=== PATIENT | male | born 1955 | race Caucasian/White ===

== ENCOUNTER 2019-04-17 18:24 | Emergency (ER) | payer OTHER, BC ==
[~2019-04-17] VITALS: Ht 172.7 cm; Wt 79.4 kg
[2019-04-17 18:44] VITALS: BP_SYST 158
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
--- NOTE | 2019-04-17 19:01 | NUR ---
PATIENT TO ER HW#1 AT 2008
--- NOTE | 2019-04-17 19:02 | NUR ---
ERMD EVALUATION AT 185
--- NOTE | 2019-04-17 20:45 | NUR ---
ER Dr. Lopez at bedside examining patient.
--- NOTE | 2019-04-17 20:52 | NUR ---
Patient went to CT in stable condition.
[2019-04-17] MEDS ORDERED: HYDROcodone/ACETAMIN 7.5-325 MG TAB PO ONE (21:00)
--- NOTE | 2019-04-17 21:03 | NUR ---
Patient returned from CT in stable condition.
--- NOTE | 2019-04-17 21:07 | NUR ---
unable to scan medication. Computer was not turning on. Manually scanned medication.
[2019-04-17] MEDS ORDERED: KETOROLAC TROMETHAMINE 60 MG/2 ML VIAL IM ONE (22:45)
[2019-04-17 22:49] VITALS: BP_SYST 139
--- NOTE | 2019-04-17 22:49 | NUR ---
Patient given written and verbal discharge instructions and verbalizes understanding. ER MD discussed with patient the results and treatment provided. Patient in stable condition. ID arm band removed. Rx of ibuprofen and norco given. Patient educated on pain management and to follow up with PMD. Pain Scale 0. Opportunity for questions provided and answered. Medication side effect fact sheet provided.
== END 2019-04-17 22:49 | disposition home or self-care (01) ==
LOC: SED 18:24
DX: S16.1XXA Strain of muscle, fascia and tendon at neck level, initial encounter (principal); V43.52XA Car driver injured in collision with other type car in traffic accident, initial encounter; Y93.89 Activity, other specified; Y92.413 State road as the place of occurrence of the external cause; Y99.8 Other external cause status
CPT/HCPCS: 72125; 73010; 73110; 96372; 99284; J1885